=== PATIENT | male | born 1970 | race Caucasian/White ===

== ENCOUNTER 2019-09-04 13:48 | Observation (INO) ==
[2019-09-04] MEDS ORDERED: ASPIRIN PO ONE (13:57)
--- NOTE | 2019-09-04 14:38 | Diag Imaging Result Doc PS360 ---
EXAM: CHEST-2 VIEWS HISTORY: cp TECHNIQUE: Two views COMPARISON: 09/04/2019 FINDINGS: The lungs are well expanded. The heart is not enlarged. The vessels are not distended. There are no infiltrates. No pleural effusions. IMPRESSION: No acute abnormality. Electronically signed by Giuseppe Murrieta 09/04/2019 2:36 PM
[2019-09-04 14:43] LABS: BASO# 0.03 X1000 (0.0-0.2); BASO% 0.3 % (0.0-0.8); EOS# 0.08 X1000 (0.0-0.7); EOS% 0.8 % (0.0-10.0); HEMATOCRIT 43.7 % (42.0-52.0); HEMOGLOBIN 14.6 g/dL (14.0-18.0); IMM GRAN# 0.04 X1000 (0.0-0.04); IMM GRAN% 0.4 % (0.0-0.5); LYMPH# 1.66 X1000 (1.2-3.4); LYMPH% 16.2 % (20.5-51.1); MCH 28.2 PG (27-31); MCHC 33.4 g/dL (33-37); MCV 84.5 FL (81-99); MONO# 0.84 X1000 (0.11-0.59); MONO% 8.2 % (1.7-9.3); MPV 11.1 FL (7.4-10.4); NEUT# 7.57 X1000 (1.4-6.5); NEUT% 74.1 % (42.2-75.2); PLT 297 X1000 (130-400); RBC 5.17 XMIL (4.7-6.1); RDW 13.2 % (11.5-14.5); WBC 10.22 X1000 (4.8-10.8)
[2019-09-04 14:57] LABS: AGAP 15; ALBUMIN 4.9 g/dL (3.5-5.0); ALKALINE PHOSPHATASE 80 U/L (32-122); BUN 13 mg/dL (8-22); CALCIUM 9.6 mg/dL (8.8-10.2); CHLORIDE 100 mmol/L (98-107); CK PROFILE 81 U/L (24-204); COSMO 276; CREATININE 0.9 mg/dL (0.7-1.2); ESTIMATED GFR > 60; GLUCOSE 110 mg/dL (70-104); GOT 23 U/L (10-34); GPT 29 U/L (10-44); SODIUM 138 mmol/L (136-145); TCO2 24 mmol/L (25-35); TOTAL PROTEIN 7.6 g/dL (6.3-8.3)
[2019-09-04 15:02] LABS: INR 0.81; PROTIME 11.6 Seconds (11.0-16.0)
[2019-09-04 15:03] LABS: PTT 29.6 Seconds (22.3-41.8)
[2019-09-04] MEDS ORDERED: G.I. COCKTAIL PO ONE (15:39)
--- NOTE | 2019-09-04 17:13 | PROVIDER DOCUMENTATION ---
This chart was entered by Joaquín Trivedi Scribe, acting as scribe for Abel Wu MD. HPI-Chest Pain - General Chief Complaint: Chest Pain Stated Complaint: CHEST PAIN Time Seen by Provider: 09/04/19 14:07 Source: patient Allergies/Adverse Reactions: Patient Allergies Allergy/AdvReac Type Severity Reaction Status Date / Time No Known Allergies Allergy Verified 09/04/19 14:07 - History of Present Illness-CP Nature of Presenting Problem: 49 yom presents to the ed with c/o chest pains. pt states onset a day ago. pt states " (dull/tight) like indigestion type pain." pt states " comes and goes." pt states when i burp it makes pains better. Location: reports: epigastric Chest Pain Radiation: reports: no radiation Quality of Pain: reports: dull, indigestion, tightness Onset/Duration: 24 hours ago Timing: still present Context/Activities at Onset: reports: none Modifying Factors: improves with: nothing Associated Symptoms: reports: denies symptoms Nitro Today/Relief: no nitro taken today Aspirin Treatment Today: provided by ED Prior Chest Pain/Cardiac Workup: reports: no prior chest pain Similar Symptoms Previously?: No Recently Seen Here or By Another Healthcare Provider: No Review of Systems - Adult - REVIEW OF SYSTEMS - ADULT Constitutional: denies: chills, fever Eyes: reports: no symptoms reported Ears, Nose, Mouth & Throat: reports: no symptoms reported Cardiovascular: reports: see HPI, chest pain. denies: palpitations Respiratory: denies: shortness of breath, wheezing Gastrointestinal: denies: abdominal pain, constipation, diarrhea, nausea, vomiting Genitourinary: denies: dysuria, frequency, urgency Musculoskeletal: denies: back pain, neck pain Integumentary: reports: no symptoms reported Neurological: reports: no symptoms reported Psychiatric: reports: no symptoms reported Endocrine: reports: no symptoms reported Hematologic/Lymphatic: reports: no symptoms reported Allergic/Immunologic: reports: no symptoms reported All Other Systems: Reviewed and Negative Past History - Adult - PAST MEDICAL HISTORY-ADULT Review of Records: reports: Old Records Reviewed, Nursing Assessment Review, Medications Reviewed, Social history reviewed & non-contributory. Major Childhood Illnesses: reports: denies history Cardiovascular: reports: denies history Respiratory: reports: denies history Gastrointestinal: reports: denies history Obstetrical/Gynecological: reports: denies history Genitourinary: reports: denies history Musculoskeletal: reports: denies history Neurological: reports: denies history Endocrine/Immune: reports: denies history Other Conditions: reports: denies history - IMMUNIZATION STATUS Childhood Immunizations: See Nurse Assessment Flu Vaccine: See Nurse Assessment - FAMILY HISTORY Family History: reviewed, not pertinent Physical Exam-General - PHYSICAL EXAM-ADULT Initial Vital Signs Reviewed: Yes - CONSTITUTIONAL General Appearance: appears well, alert, mild distress - RESPIRATORY Respiratory: chest non-tender, lungs clear, normal breath sounds - CARDIOVASCULAR Cardiovascular: regular rate, rhythm, tachycardia (111) - GENITOURINARY Male Genitalia: deferred Rectal Exam: deferred Hemoccult Exam: deferred - SKIN Integumentary: normal color, normal turgor, warm/dry - NEUROLOGIC Neurologic: grossly normal, no motor/sensory deficits - PSYCHIATRIC Psych/Mental Status: normal mood/affect, normal thought content, normal thought process, oriented x 3 - HEART Score HEART Score: History: Slightly Suspicious HEART Score: ECG: Non-Specific Repolarization Disturbance/LBBB/PM HEART Score: Age: 45-65 Years HEART Score: Risk Factors for Atherosclerotic Disease: > or = 3 Risk Factors or History of Atherosclerotic Disease HEART Score: Troponin: < or = Normal Limit Total HEART Score:: 4 Progress - PLAN OF CARE/RESULTS Progress/Plan/Lab Results: Vital Signs - 8 hr 09/04/19 14:03 Temperature 98.3 F Pulse Rate 111 H Respiratory Rate 18 Blood Pressure 146/91 O2 Sat by Pulse Oximetry 97 Laboratory Results - last 24 hr 09/04/19 09/04/19 09/04/19 14:15 14:15 14:15 WBC 10.22 RBC 5.17 Hgb 14.6 Hct 43.7 MCV 84.5 MCH 28.2 MCHC 33.4 RDW Std Deviation 13.2 Plt Count 297 MPV 11.1 H Immature Gran % (Auto) 0.4 Neut % (Auto) 74.1 Lymph % (Auto) 16.2 L [place] % (Auto) 8.2 Eos % (Auto) 0.8 Baso % (Auto) 0.3 Immature Gran # (Auto) 0.04 Neut # (Auto) 7.57 H Lymph # (Auto) 1.66 [place]asta # (Auto) 0.84 H Eos # (Auto) 0.08 Baso # (Auto) 0.03 PT INR PTT (Actin FS) Sodium 138 Potassium 4.0 Chloride 100 Carbon Dioxide 24 L Anion Gap 15 BUN 13 Creatinine 0.9 Estimated GFR/1.73 m2 > 60 BUN/Creatinine Ratio 14 Glucose 110 H Calculated Osmolality 276 Calcium 9.6 Total Bilirubin 0.70 AST 23 ALT 29 Alkaline Phosphatase 80 Creatine Kinase 81 Troponin T Xcb-H-Sdsbalxnrgy Pept 14 Total Protein 7.6 Albumin 4.9 Globulin 3.0 Albumin/Globulin Ratio 2.0 09/04/19 09/04/19 09/04/19 14:15 14:15 16:30 WBC RBC Hgb Hct MCV MCH MCHC RDW Std Deviation Plt Count MPV Immature Gran % (Auto) Neut % (Auto) Lymph % (Auto) [place] % (Auto) Eos % (Auto) Baso % (Auto) Immature Gran # (Auto) Neut # (Auto) Lymph # (Auto) [place] # (Auto) Eos # (Auto) Baso # (Auto) PT 11.6 INR 0.81 PTT (Actin FS) 29.6 Sodium Potassium Chloride Carbon Dioxide Anion Gap BUN Creatinine Estimated GFR/1.73 m2 BUN/Creatinine Ratio Glucose Calculated Osmolality Calcium Total Bilirubin AST ALT Alkaline Phosphatase Creatine Kinase Troponin T < 0.010 < 0.010 Khc-G-Dgsccepfkcu Pept Total Protein Albumin Globulin Albumin/Globulin Ratio Orders Category Date Time Status CHEST-2 VIEWS [RAD] Stat Exams 09/04/19 13:58 Completed CBC WITH ELECTRONIC DIFF [HEME] Stat Lab 09/04/19 14:15 Completed CK PROFILE [SP CHEM] Stat Lab 09/04/19 14:15 Completed COMPREHENSIVE METABOLIC PANEL [CHEM] Stat Lab 09/04/19 14:15 Completed PRO B-NATRIURETIC PEPTIDE Stat Lab 09/04/19 14:15 Completed PROTIME WITH INR [COAG] Stat Lab 09/04/19 14:15 Completed PTT [COAG] Stat Lab 09/04/19 14:15 Completed TROPONIN T Stat Lab 09/04/19 14:15 Completed TROPONIN T Stat Lab 09/04/19 16:30 Completed Aspirin Med 09/04/19 13:57 Discontinued 325 mg PO NOW ONE Lido/Busch Alk/Al&mg Hydrox [G.i. Cocktail] Med 09/04/19 15:39 Discontinued 30 ml PO NOW ONE CP/SOB/Palp >45 yrs of Age Stat Oth 09/04/19 13:57 Ordered EKG [EKG] Stat Ther 09/04/19 13:58 Ordered Result Diagrams: 09/04/19 14:15 09/04/19 14:15 - EKG 1 Time of EKG reading by physician:: 14:02 EKG Read and Signed by:: Abel Wu EKG Interpretation (*Must complete 3 of following elements*): Normal Rate: 112 Rhythm: sinus tachycardia Carmen: normal QRS: normal ME Interval: normal ST Wave: normal - XRAY 1 XRAY Study: Chest Impression: See EMR Report (EXAM: CHEST-2 VIEWS HISTORY: cp TECHNIQUE: Two views COMPARISON: 09/04/2019 FINDINGS: The lungs are well expanded. The heart is not enlarged. The vessels are not distended. There are no infiltrates. No pleural effusions. IMPRESSION: No acute abnormality. Electronically signed by Giuseppe Murrieta 09/04/2019 2:36 PM 09/04/19 1436 Interpreting Physician: Giuseppe Murrieta MD Dictated Date/Time: 09/04/19 1436 cc: Abel Wu MD; Charmaine Trevino) - CONSULTS/PCP/HOSPITALIST Notification #1 *Consult/PCP/Hospitalist*: Dr Berry Time Discussed: 17:13 Consult Disposition: Will see in ED, Admit Departure - Departure Date of Disposition Decision: 09/04/19 Time of Disposition Decision: 17:13 DIAGNOSIS: Chest pain Disposition: ADMITTED INPATIENT 09 Certified Medical Emergency: Emergent Condition: Fair Referrals and Follow-Ups: Charmaine Trevino [Primary Care Provider] - - Critical Care Note This patient required my direct & personal management of CC.: No Attestation - Physician/ BRANDIE Attestation Patient care was provided by Advanced Practice Provider:: No The physician spent face to face time with patient:: Yes Advanced Practice Provider documentation review:: Supervising physician onsite and consulted in the evaluation and care of this patient. The physician did have a face to face encounter with the patient. This chart was documented by the indicated scribe, (Joaquín Trivedi, Rosmery) and accurately reflects the services I performed and decisions made by me, Abel Wu MD, as attested by the provider's signature.
[2019-09-04] MEDS ORDERED: ZOFRAN IV PRN (17:55)
[2019-09-04] MEDS ORDERED: TYLENOL PO PRN (17:55)
--- NOTE | 2019-09-04 18:25 | EKG Report ---
Test Performed on : 09/04/2019 2:02:16 PM Test Reason : cp Blood Pressure : / mmHG Vent. Rate : 112 BPM Atrial Rate : 112 BPM P-R Int : 168 ms QRS Dur : 094 ms QT Int : 344 ms P-R-T Axes : 039 -06 023 degrees QTc Int : 469 ms Sinus tachycardia. Otherwise normal ECG No previous ECGs available Unconfirmed Result
[2019-09-04] MEDS ORDERED: NS 1,000 ML IV ONE (19:00)
[2019-09-05] MEDS: PATIENT'S OWN MED PO SCH ×2 (00:33→08:43)
--- NOTE | 2019-09-05 06:37 | EKG Report ---
Test Performed on : 09/05/2019 04:28:03 AM Test Reason : CP Blood Pressure : / mmHG Vent. Rate : 085 BPM Atrial Rate : 085 BPM P-R Int : 162 ms QRS Dur : 094 ms QT Int : 380 ms P-R-T Axes : 036 021 035 degrees QTc Int : 452 ms Normal sinus rhythm. Normal ECG When compared with ECG of 04-SEP-2019 14:02, (Unconfirmed) Nonspecific T wave abnormality no longer evident in Inferior leads Confirmed by Gregg Mazariegos MD ([id number]) on 09/06/2019 7:30:01 AM
[2019-09-05] MEDS ORDERED: PRILOSEC PO SCH (07:00)
[2019-09-05 07:15] LABS: CHOLESTEROL 130 mg/dL (0-200); HDL 39 mg/dL (35-55); LDL 63 mg/dL; TRIGLYCERIDES 139 mg/dL (39-160); VLDL 28 mg/dL
[2019-09-05 07:20] LABS: HEMOGLOBIN A1C 5.2 % (4.8-6.0)
--- NOTE | 2019-09-05 07:37 | HISTORY AND PHYSICAL ---
CHIEF COMPLAINT: Chest pressure. HISTORY OF PRESENT ILLNESS: This is a 49-year-old white male with history of hypertension and diabetes, who comes in from home today with about a 24-hour history of persistent chest tightness. He describes a sensation of chest pressure and tightness. It was relieved by Tums, but then it came back, and it has been persistent ever since for the last 24 hours kind off and on. No alleviating factors. No radiation to neck or shoulder. Some radiation to his back. He is status post cholecystectomy. He has no history of CAD. He has had a stress test a couple years ago that was unremarkable. Workup otherwise in the ER was unremarkable, and the patient was placed in observation for chest pain. PAST MEDICAL HISTORY: 1. Hypertension. 2. Type 2 diabetes. PAST SURGICAL HISTORY: He has had a cholecystectomy. FAMILY HISTORY: His father had a heart attack in his early 50s and . I think he was 53. He has brothers who are twins, and one of those brothers had a heart attack in his 50s. He had several uncles with heart attacks in their early 50s. SOCIAL HISTORY: No tobacco or ethanol. He is , has a child. ALLERGIES: No known drug allergies. MEDICATIONS: He is on Apremilast 30 b.i.d., metformin 500 daily, and lisinopril 10 daily. REVIEW OF SYSTEMS: Otherwise negative times a 10-point review of systems. PHYSICAL EXAMINATION: VITAL SIGNS: Blood pressure 146/91, heart rate of 18, respiratory rate of 18, heart rate of 111, temperature of 98.3 degrees. He is 320 pounds. GENERAL: A well-developed male in no acute distress. HEENT: Head: Normocephalic, atraumatic. Eyes: Pupils equal, round, reactive to light. Extraocular movements were intact. Ear/Nose/Throat: He had moist mucous membranes. NECK: Supple. CARDIOVASCULAR: Regular rate and rhythm. PULMONARY: Bilateral breath sounds. Clear to auscultation. GI: Soft, nontender, nondistended. Bowel sounds are positive. NEUROLOGIC: Nonfocal. MUSCULOSKELETAL: Strength 4/5 in all 4 extremities. LABORATORY AND DIAGNOSTIC DATA: White count is normal, hemoglobin and hematocrit normal. Coags normal. Chemistries looked okay. Two sets of troponins are negative. EKG, I think, did not show anything. ASSESSMENT: This is a 49-year-old male. Heart score is felt to be 4. I am going to give him 3 because his troponin is normal, history is 1, electrocardiogram I do not think is specific, age is 1 point, and his risk factors are less than 2, so 3 points there. In any case, we will place him in observation, telemetry, serial cardiac enzymes. We will get a stress test tomorrow, and follow clinically. May need a Gastroenterology workup. It also sounds like he may have some obstructive sleep apnea. Will continue to follow. This is a service admission patient, usually seen [place] [facility] [place]. cc: Gulshan Berry MD
[2019-09-05] MEDS ORDERED: PRINIVIL PO SCH (09:00)
[2019-09-05] MEDS ORDERED: ASPIRIN EC PO SCH (09:00)
--- NOTE | 2019-09-05 12:41 | GRADED EXERCISE REPORT ---
DATE: 09/05/2019 SUBJECTIVE: The patient has no major complaints. OBJECTIVE: Blood pressure is 125/82, heart rate of 109, respiratory rate of 20. The patient underwent Lexiscan per protocol; 0.4 mg was administered. Baseline heart rate is 98, baseline blood pressure is 120/70. EKG is nonischemic, but it does look like on this EKG that he has had a possible inferior MO, not clearly, but he did not have any significant ST changes. He had no chest pain during this test, so it was felt to be clinically and electrically negative. cc: Gulshan Berry MD
--- NOTE | 2019-09-05 14:46 | Diag Imaging Result Document ---
PROCEDURE NAME: MYOCARDIAL PERF SCAN, STR/REST - 09/05/2019 PROCEDURE: Lexiscan Cardiolite stress test. DESCRIPTION OF PROCEDURE IN DETAIL: Lexiscan by Dr. Berry. Following Lexiscan infusion, Cardiolite was injected. Total of 15.9 mCi of Cardiolite was injected for the rest phase; 46.3 mCi of Cardiolite was injected for the stress phase. Gated SPECT images were obtained in standard views. Images revealed significant chest wall and diaphragmatic attenuation. Normal left ventricular cavity size. There is better tracer uptake on stress compared to rest. Normal myocardial perfusion. Left ventricular ejection fraction by gated SPECT was 72%. CONCLUSIONS: 1. Lexiscan report per Dr. Berry. 2. Normal myocardial perfusion. 3. Left ventricular ejection fraction 72%. cc: MD Gulshan Dowd MD
[2019-09-05 15:17] VITALS: BP 115/71
[2019-09-05] MEDS ORDERED: LEXISCAN ONE (15:24)
--- NOTE | 2019-09-06 18:39 | DISCHARGE SUMMARY ---
ADMISSION DATE: 09/04/2019 DISCHARGE DATE: 09/05/2019 PRIMARY CARE PHYSICIAN: Charmaine Trevino MD ADMISSION DIAGNOSES: 1. Chest pain. 2. Hypertension. 3. Diabetes type 2. DISCHARGE DIAGNOSES: 1. Chest pain ruled out by stress test. 2. Hypertension. 3. Diabetes type 2. SUMMARY OF FINDINGS: This is a 49-year-old male who presented with a 24 hour history of persistent chest tightness with a sensation of chest pressure and tightness. It was relieved by Tums, but then came back and was persistent for about 24 hours on and off with no alleviating factors. No radiation to neck or shoulders. There was some radiation to his back. States he had a stress test a couple years ago that was unremarkable. He was admitted. We did cardiac enzymes x4 sets that were negative. We did a myocardial perfusion scan that was normal. We did an echocardiogram, but those results are still pending, but it is felt at this time that he can be discharged home. DISCHARGE MEDICATIONS: Include Otezla 30 mg p.o. b.i.d., lisinopril 10 mg p.o. daily, omeprazole 40 mg p.o. daily, metformin 500 mg p.o. daily. FOLLOWUP: He will follow up with his primary care physician in 1 to 2 weeks and call their office for an appointment. All discharge instructions have been reviewed, and he verbalized understanding. TIME SPENT: This is a 35 minute discharge. Dictated by FRANCES Hearn for Gulshan Berry MD cc: FRANCES Hearn MD Loren McCoy, MD Pt seen and examined, day of dc, he is chest pain free, his stress test is unremarkable; will start ppi and recommend followup with GI [facility]TDD
--- NOTE | 2019-09-07 14:31 | ECHO REPORT ---
ORDER DATE: 09/05/2019 ECHOCARDIOGRAPHIC MEASUREMENTS: 1. Interventricular septum 1.2. 2. Left ventricular posterior wall 1.1. 3. Diastolic diameter 5.0. 4. Left atrium 4.2. 5. Aorta 3.7. SUMMARY: 1. Technically suboptimal study. Poor acoustic window. 2. Aortic valve leaflets are trileaflet. 3. Pulmonic valve was normal. 4. Tricuspid valve was normal. 5. Mitral valve was normal. 6. Technically suboptimal study. Poor apical windows. 7. There is a trace mitral regurgitation. 8. Peak velocity across the aortic valve less than 2 m/sec. 9. There is no aortic stenosis or regurgitation. 10. Trace tricuspid regurgitation. 11. Peak velocity across the tricuspid valve less than 2 m/sec. 12. Optison was used to assess left ventricular systolic function. 13. Normal left ventricular cavity size. 14. Estimated ejection fraction of 60%. 15. Anterior echo-free space suggestive of pericardial fat pad noted. 16. There is no pericardial effusion. cc: MD Gulshan Dowd MD
== END 2019-09-05 16:50 | disposition home or self-care (01) ==
LOC: P.ED 13:48 → INTOOBSV 22:31 → P.MEDSURG 22:31 → SUATTDRO 22:31
PROVIDERS: ATTEND Family Medicine